=== PATIENT | female | born 1995 | race Hispanic/Latino ===

== ENCOUNTER 2017-01-14 09:01 | Inpatient (IN) | payer OTHER ==
[~2017-01-14] VITALS: Ht 152.4 cm; Wt 86.6 kg
[~2017-01-14 09:01] MED LIST: ASCO500T8 PO; Docusate Sodium PO; FERR-74 PO; Ibuprofen PO; NOMED; Oxycodone/Acetaminophen PO
[2017-01-14] MEDS ORDERED: fentaNYL-PF 50 mCg/mL 2 mL Inj ONE (09:23)
[2017-01-14] MEDS ORDERED: Oxytocin 30 Units/500 mL LR Premix IV ONE (09:28)
[2017-01-14] MEDS ORDERED: Oxytocin 10 Unit/mL Inj IM PRN ×2 (09:45→10:00)
[2017-01-14] MEDS ORDERED: Carboprost 250 mCg/mL Inj IM PRN ×2 (09:45→10:00)
[2017-01-14] MEDS ORDERED: Hemorrhage Kit, Post Partum XX ONE ×2 (09:45→10:00)
[2017-01-14] MEDS ORDERED: Methylergonovine 0.2 mg/mL Inj IM PRN ×2 (09:45→10:00)
[2017-01-14 09:51] LABS: Mean Corpuscular Hemoglobin 18.7 pg (27.0-35.0); Mean Corpuscular Volume 64.8 fL (81-100)
[2017-01-14] MEDS: Lactated Ringer's 1,000 ML IV SCH ×2 (09:58→17:58)
[2017-01-14] MEDS ORDERED: Benzocaine (Dermoplast) 20% 60 Gm Spray TOPICAL PRN (10:00)
[2017-01-14] MEDS ORDERED: LANOlin HPA 7 Gm Ointment TOPICAL PRN (10:00)
[2017-01-14] MEDS ORDERED: Witch Hazel-Glycerin Pads TOPICAL PRN (10:00)
[2017-01-14] MEDS ORDERED: Oxytocin 30 Units/500 mL LR 30 UNITS in IV Premix 1 EACH IV PRN (10:00)
[2017-01-14] MEDS: oxyCODONE-Acetamin 5-325 mg Tablet PO PRN ×4 (10:42→22:59)
--- NOTE | 2017-01-14 13:19 | HP ---
[address] [address] HISTORY AND PHYSICAL PATIENT: BRIGETTE FELIX : 1995 MR#: [id number] ADMIT: 01/14/2017 JOB ID: [id number] HISTORY: The patient is a 21-year-old, 2, para 1, with estimated due date January 20, 2017. Presents with complaint of contractions that started at six o'clock in the morning, date of arrival at Labor and Delivery 9 a.m. The contractions were becoming strong, intense. Gestational age at delivery 39 weeks and 1 day. heart rate tracing is reactive, category 1. Baseline 140 beats per minute. The patient is rosalio every 2-4 minutes. SOCIAL HISTORY: Patient is nonsmoker, denies alcohol, or illicit recreational drug use. OBSTETRICAL HISTORY: Spontaneous vaginal delivery in 2014, delivered a male with weight 4159 g, at term. MEDICAL HISTORY: Unremarkable. ALLERGIES: NKDA. CARE: The patient was diagnosed with marginal placenta previa on December 08, 2016. Her care was uncomplicated. Hemoglobin A1c was 5.7% in the 1st trimester. She was counseled on prediabetes, and weight gain in and growth were appropriate. LABS: Blood group and type A positive, rubella immune. Varicella immune. GBS culture was negative. PHYSICAL EXAMINATION: Vital signs: Blood pressure 110/68, temperature 36.7, respiratory rate 18, pulse 96. General: Awake, oriented x3. HEENT: PERRLA. Lungs clear, good respiratory effort. Cardiovascular systems: Regular rate and rhythm. Abdomen is nondistended, tender with contractions. Extremities: No pitting edema. Technical Designer exam: The cervix is 6 cm dilated, 100% effaced, zero station. ASSESSMENT AND PLAN: The patient is a 21-year-old, 2, para 1, at 39 weeks and 1 day. Presents in active labor with intact membranes at 9 a.m. Having contractions for 3 hours, progressed to 6 cm. Being admitted to Labor and Delivery. Fentanyl is given p.r.n. for pain. The patient would like to have an epidural. Anesthesiologist was notified. IV fluid started. Labs were sent. We will anticipate spontaneous vaginal delivery.
--- NOTE | 2017-01-14 13:55 | OP ---
[address] [address] OPERATIVE REPORT PATIENT: BRIGETTE FELIX : 1995 MR#: [id number] ADMIT: 01/14/2017 JOB ID: [id number] DATE OF SURGERY: 01/14/2017 (delivery) SURGEON: PREOPERATIVE DIAGNOSIS(ES): POSTOPERATIVE DIAGNOSIS(ES): DELIVERY NOTE: The patient is a 21-year-old, 2, para 2 now, who came to Labor and Delivery at 9:00 a.m. on January 14, 2017, with complaint of contractions that started shortly after 6 a.m. The contractions were regular and intense. The patient was examined. She was 6 cm dilated, 100% effaced, zero station. heart rate tracing was reactive, category 1. The patient progressed to full dilation at 9:15 a.m. and underwent spontaneous vaginal delivery at 9:25 a.m. Delivered a female with weight 7 pounds and 10 ounces and Apgars 9 at one minute and 9 at five minutes. The placenta was delivered 8 minutes later. Was found to be intact with three-vessel cord. The patient has not had any lacerations. ESTIMATED BLOOD LOSS: 200 mL. It was uncomplicated precipitous labor.
[2017-01-14] MEDS: Ascorbic Acid 500 mg Tablet PO SCH (17:28)
[2017-01-15] MEDS: oxyCODONE-Acetamin 5-325 mg Tablet PO PRN ×5 (03:04→19:13)
[2017-01-15 07:03] LABS: Mean Corpuscular Hemoglobin 19.1 pg (27.0-35.0); Mean Corpuscular Volume 65.8 fL (81-100)
[2017-01-15] MEDS: Ascorbic Acid 500 mg Tablet PO SCH ×2 (07:47→18:10)
[2017-01-15] MEDS ORDERED: diphenhydrAMINE 25 mg Capsule PO ONE (08:00)
[2017-01-15] MEDS ORDERED: Furosemide 10 mg/mL 2 mL Inj IV ONE (08:00)
--- NOTE | 2017-01-15 08:30 | PCM.DC.OB ---
Obstetrical Discharge Summary Date of Service Jan 15, 2017 Date of hospital admission Jan 14, 2017 at 09:03 Date of Discharge: Jan 15, 2017 Providers Admitting Physician: Gibran Valadez MD Primary Care Physician: Luis Mariano MD Attending Physician: Gibran Valadez MD Diagnosis at Time of Discharge S/P Problems: Brief History and Physical: The patient is a 21-year-old, 2 now para 2, with an DMITRI of January. Patient is nonsmoker, denies alcohol, or illicit recreational drug use.Spontaneous vaginal delivery in 2014, delivered a term male with weight 4159 g. Patient scheduled for induction 01/15/17. However patient presented to [facility] at 39 weeks and 1 at on 01/14/17 at 0900 with complaint of contractions that started at 0600, The contractions were becoming strong, intense. heart rate tracing at time of admission noted to be reactive, category 1. Baseline FHR 140. The patient was rosalio every 2-4 minutes. Patient delivered healthy 0925 01/14/17 without complication. After delivery patient doing well, with normal lochia, no complaints of fever, chills, nausea, vomiting, diarrhea, dizziness, vision changes.Patient noted that she is getting out of bed, eating well, no problems voiding, passing gas. Repeat labs 01/15/17 show drop in hemoglobin to 6.2. On physical examination patient noted to be pale, fatigued, with pale mucus membranes and delayed capillary refill. Discussed transfusion of blood produced with patient. Patient acknowledge and understood risk/benefit and consented for blood transfusion. LABS: Blood group and type A positive, rubella immune. Varicella immune. GBS culture was negative. H/H 7.6 Gen: Alert and oriented, tired, pale looking Cardiovascular: RRR, +S1. +S1, no M/G/R, pale mucus membranes, delayed capillary refill >3 sec, normal pulses +2 in all extremities. Resp: CTA b/l, normal air movement, no wheezes, no ronchi Abdomen: Fundus firm, lochia normal, normal BS, non tender Neuro: grossly neurologically intact Hospital Course: The patient is a 21-year-old, 2 now para 2, with an DMITRI of January. Patient is nonsmoker, denies alcohol, or illicit recreational drug use.Spontaneous vaginal delivery in 2014, delivered a term male with weight 4159 g. Patient scheduled for induction 01/15/17. However patient presented to [facility] at 39 weeks and 1 at on 01/14/17 at 0900 with complaint of contractions that started at 0600, The contractions were becoming strong, intense. heart rate tracing at time of admission noted to be reactive, category 1. Baseline FHR 140. The patient was rosalio every 2-4 minutes. Patient delivered healthy 92401/14/17 without complication. Today patient doing well, with normal lochia, no complaints of fever, chills, nausea, vomiting, diarrhea, dizziness, vision changes.Patient noted that she is getting out of bed, eating well, no problems voiding, passing gas. Repeat labs 01/15/17 show drop in hemoglobin to 6.2. On physical examination patient noted to be pale, fatigued, with pale mucus membranes and delayed capillary refill. Discussed transfusion of blood produced with patient. Patient acknowledge and understood risk/benefit and consented for blood transfusion. ([Oxycodone/Acetaminophen]) 1 TAB TABLET 1 TAB PO Q6 PRN PRN For Pain Prescribed by: CAROLINE BALDERRAMA DO ([Ibuprofen]) 800 MG TABLET 800 MG PO Q8 PRN PRN For Pain Prescribed by: CAROLINE BALDERRAMA DO ([Docusate Sodium]) 100 MG CAPSULE 100 MG PO BID Prescribed by: CAROLINE BALDERRAMA DO ([Benzocaine]) 1 SPRAY/GM SPRAY 1 SPRAY TOPICAL PRN PRN PRN for perineal pain Prescribed by: MARISELA PARISI DO ([Lanolin]) 2 APPLIC/GM OINT 1 APPLIC TOPICAL PRN PRN PRN apply to nipples Prescribed by: MARISELA PARISI DO Ascorbic Acid (Vitamin C) 500 Mg Tablet 500 MG PO BIDWM Prescribed by: CAROLINE BALDERRAMA DO Docusate Sodium (Colace) 100 Mg Capsule 100 MG PO BID Prescribed by: MARISELA PARISI DO Ferrous Sulfate (Feosol) 325 Mg Tablet 325 MG PO TID Prescribed by: MARISELA PARISI DO Ibuprofen (Ibuprofen) 600 Mg Tablet 600 MG PO QID PRN PRN For Pain Prescribed by: MARISELA PARISI DO No Historical Medication (No Historical Medication) Ea (Reported) Witch Sierra/Glycerin (A.e.r Pads) 12 Towelette/Pkg Towelette 1 PAD TOPICAL PRN PRN PRN for perineal pain Prescribed by: MARISELA PARISI DO oxyCODONE-Acetaminophen 5-325 mg (oxyCODONE-Acetaminophen 5-325 mg) 1 Each Tablet 1-2 TAB PO Q4H PRN PRN For Pain Prescribed by: MARISELA PARISI DO Discharge Medications: Iron replacement FESO4 325 mg by mouth three times daily Ibuprofen 600 mg by mouth every 6-8 hours for pain Oxycodone/acetaminophen 5-325 mg by mouth every 4-[address] 20 Colase 100 mg by mouth twice daily for constipation Continue vitamin Disposition DC home Follow-up plan Follow up in [facility] in 6 weeks Discharge Diet: No restrictions Discharge Activity-General: Pelvic Rest for 6 weeks, Pelvic Rest, Try not to overdue, No lifting >15 pounds for 2 weeks Patient instructions Follow up in [facility] in 6 weeks for check Iron replacement FESO4 325 mg by mouth three times daily Ibuprofen 600 mg by mouth every 6-8 hours for pain Oxycodone/acetaminophen 5-325 mg by mouth every 4-[address] 20 Colase 100 mg by mouth twice daily for constipation Continue vitamin Call our office for appointment sooner if you experience worsening bleeding, fever, chills, dizziness, worsening pain, change in mood, depression, thoughts of hurting yourself or others. MARISELA PARISI DO Jan 15, 2017 08:30
--- NOTE | 2017-01-15 08:39 | PCM.DIOB ---
Obstetrical Disch Instruction Date of Service: Jan 15, 2017 Dates of Hospitalization Date of Hospital Admission Jan 14, 2017 at 09:03 Providers Admitting Physician: Gibran Valadez MD Primary Care Physician: Luis Mariano MD Attending Physician: Gibran Valadez MD Discharge Diagnosis Discharge Diagnosis S/P Problems: Diet Discharge Diet: No restrictions Activity Discharge Activity-General: No restrictions, Pelvic Rest for 6 weeks, Try not to overdue, Balance rest and activity, Activity as pain allows, Activity as energy allows, No lifting >10 pounds for 4-6 weeks Dressing and Incisional Care Dressing Care: Keep dressing clean, dry & intact, Allow Steri Stripes to fall off, Remove outer dressing after 24 hrs Hygiene: May shower, DO NOT soak incision under water, NO bathtub, hot tub or whirlpool Additional Instructions Discharge Instructions Follow up in [facility] in 6 weeks for check Iron replacement FESO4 325 mg by mouth three times daily Ibuprofen 600 mg by mouth every 6-8 hours for pain Oxycodone/acetaminophen 5-325 mg by mouth every 4-[address] 20 Colase 100 mg by mouth twice daily for constipation Continue vitamin Call our office for appointment sooner if you experience worsening bleeding, fever, chills, dizziness, worsening pain, change in mood, depression, thoughts of hurting yourself or others. Follow Up Plan Follow Up Plan Follow up in clinic in 6 weeks MARISELA PARISI DO Jan 15, 2017 08:39
[2017-01-15 08:42] LABS: Unsaturated Iron Binding 484.3 ug/dL
[2017-01-15] MEDS ORDERED: TUCPAD TOPICAL (08:49)
[2017-01-15] MEDS ORDERED: Benzocaine TOPICAL (08:49)
[2017-01-15] MEDS ORDERED: OXYC1TAB24 PO (08:49)
[2017-01-15] MEDS ORDERED: IBUP-1827 PO (08:49)
[2017-01-15] MEDS ORDERED: Lanolin TOPICAL (08:49)
[2017-01-15] MEDS ORDERED: FERR-74 PO (08:49)
[2017-01-15] MEDS ORDERED: DOCU-41 PO (08:49)
[2017-01-15] MEDS ORDERED: 0.9% Sodium Chloride 1,000 ML IV SCH (09:25)
[2017-01-15] MEDS ORDERED: 0.9% Sodium Chloride 250 ML IV ONE (09:25)
[2017-01-15] MEDS: Lactated Ringer's 1,000 ML IV SCH ×2 (09:58→17:58)
[2017-01-15 16:26] VITALS: BP 115/65; PULSE 71; RESP 18
[2017-01-15] MEDS ORDERED: Sodium Chloride LOK Flush 10 mL Syringe IVFLUSH SCH (16:30)
== END 2017-01-15 19:17 | disposition home or self-care (01) | DRG 775 ==
LOC: FBCO 09:01 → FBC 09:03
PROVIDERS: ADMIT Legal Medicine; ATTEND Legal Medicine
PROC: 10E0XZZ Delivery of Products of Conception, External Approach (ICD-10-PCS; principal; 2017-01-14)
DX: O80 Encounter for full-term uncomplicated delivery (principal); Z37.0 Single live birth; Z3A.39 39 weeks gestation of pregnancy